=== PATIENT | female | born 1975 | race Hispanic/Latino ===

== ENCOUNTER 2017-03-16 22:56 | Emergency (ER) | payer OTHER ==
[~2017-03-16 22:56] MED LIST: DOXYCYCLINE MO100 MG PO; FLAG500 PO; IBUPROFEN800 MG PO; PERCOCET 325 MG1 TA2 PO; PREDNICOT20 MG PO; ZITHROMAX Z-PA250 M1 PO
[2017-03-16 23:38] VITALS: BP 102/66
--- NOTE | 2017-03-17 01:01 | ED NECK/BACK PAIN COMPLAINT ---
History of Present Illness General Chief Complaint: Low Back Pain/Injury Stated Complaint: BACK PAIN Source: patient Exam Limitations: no limitations Vital Signs & Intake/Output Vital Signs & Intake/Output Vital Signs Date Time Temp Pulse Resp B/P B/P Pulse O2 O2 Flow FiO2 Mean Ox Delivery Rate 03/16 2338 97.8 93 20 102/66 96 Room Air ED Intake and Output 03/17 0000 03/16 1200 Intake Total Output Total Balance Patient 145 lb Weight . (AMY PRADO,KELVIN Espinosa) Allergies Coded Allergies: NO KNOWN ALLERGIES (08/03/11) Reconcile Medications Cyclobenzaprine HCl 10 MG TABLET 1 TAB PO 4 TIMES/DAY PRN MUSCLE SPASM DOXYCYCLINE MONOHYDRATE (Doxycycline Monohydrate) 100 MG CAP 1 CAP PO BID INFECTION (Reported) Ibuprofen 800 MG TABLET 1 TAB PO TID PRN pain Ibuprofen 800 MG TABLET 800 MG PO Q6P PRN PAIN SCALE 4-6 Metronidazole (Flagyl) 500 MG TAB 1 TAB PO BID endometritis (Reported) Oxycodone HCl/Acetaminophen (Percocet 5-325 MG Tablet) 5 MG-325 MG TABLET 1 TAB PO 4XDP PRN PAIN four...[id number] OXYCODONE HCL/ACETAMINOPHEN (Percocet 5-325 MG Tablet) 325 MG/5 MG TAB 1 TAB PO Q4P PRN PAIN SCALE 1-5 Triage Nurses Notes Reviewed? yes Onset: Gradual Duration: day(s): Timing: recent history Quality/Severity: moderate Location: left buttock Radiation: buttocks Context: turning/bending Method of Injury: twisted Loss of Consciousness: no loss of consciousness Associated Symptoms: muscle spasm HPI: 41 yo woman in prior good health, h/o sciatica, presents with muscle spasm and pain in the left buttock. She notes, "I twisted a few days ago and I felt a tearing sensation... The pain is in my left buttock, and goes down behind my back." She took 2 of her daughter's muscle relaxants. She has no weakness, numbness, tingling. She is otherwise well. Past History Medical History Any Pertinent Medical History? see below for history Neurological: NONE EENT: NONE Cardiovascular: NONE Respiratory: NONE Gastrointestinal: NONE Hepatic: NONE Renal: NONE Musculoskeletal: NONE Psychiatric: NONE Endocrine: NONE Blood Disorders: NONE Cancer(s): NONE Surgical History Surgical History: N Psychosocial History What is your primary language Japanese Family History Hx Contributory? No Review of Systems Review of Systems Constitutional: Reports: no symptoms. Eyes: Reports: no symptoms. Ears, Nose, Throat, Mouth: Reports: no symptoms. Respiratory: Reports: no symptoms. Cardiovascular: Reports: no symptoms. Gastrointestinal/Abdominal: Reports: no symptoms. Musculoskeletal: Reports: no symptoms. Skin: Reports: no symptoms. Neurological/Psychological: Reports: no symptoms. All Other Systems: Reviewed and Negative Physical Exam Physical Exam General Appearance: well developed/nourished, mild distress Head: atraumatic Eyes: Bilateral: normal appearance. Ears, Nose, Throat, Mouth: hearing grossly normal Neck: normal inspection, supple, full range of motion, normal alignment Respiratory: normal breath sounds Cardiovascular: regular rate/rhythm Gastrointestinal: soft, non-tender Back: normal inspection Extremities: normal range of motion Neurologic/Psych: awake, alert, oriented x 3, normal mood/affect Skin: intact, normal color, warm/dry Comments: mild tenderness and muscle spasm to left buttock. negative straight leg raise bilaterally. Strength/light touch/dtr's symmetrical and normal bilaterally. Progress Differential Diagnosis: herniated disc, myofascial strain, sciatica Plan of Care: Current Medications Sig/Salvatore Start time Last Medication Dose Stop Time Status Admin Ketorolac 60 MG ONCE ONE 03/17 315 UNVr Tromethamine 03/17 316 (Toradol) Departure Departure Disposition: HOME OR SELF CARE Condition: Stable Clinical Impression Primary Impression: Back pain Referrals: ZAC LA APRN (PCP/Family) Departure Forms: Customer Survey General Discharge Information Prescriptions: Current Visit Scripts Ibuprofen 1 TAB PO TID PRN pain #60 TAB Cyclobenzaprine HCl 1 TAB PO 4 TIMES/DAY PRN MUSCLE SPASM #30 TAB Ref 1 Oxycodone HCl/Acetaminophen (Percocet 5-325 MG Tablet) 1 TAB PO 4XDP PRN PAIN #4 TAB four...[id number]
[2017-03-17] MEDS ORDERED: CYCLOBENZAPRINE10 M1 PO (03:09)
[2017-03-17] MEDS ORDERED: IBUPROFEN800 M1 PO (03:09)
[2017-03-17] MEDS ORDERED: PERCOCET 5-3251 EACH PO (03:09)
== END 2017-03-17 03:28 ==
LOC: ERH
DX: M54.5 Low back pain (principal)
CPT/HCPCS: J1885